=== PATIENT | female | born 1945 | race Caucasian/White ===

== ENCOUNTER → 2017-02-19 | Outpatient (CLI) | payer MEDICARE ==
[~2017-02-19] MED LIST: ALLEGRA ALLERG180 MG PO; AMITRIPTYLINE H25 MG PO; BENTYL10 M1 PO; GLUCOPHAGE500 M1 PO; IBUPROFEN200 M1 PO; ONE DAILY COMPL1 TA1 PO; PROBIOTIC1 EAC1 PO; PROTONIX PO; VITAMIN C1000 M2 PO
--- NOTE | ~2017-02-19 | CT2 ---
[facility] A Service of [facility] RADIOLOGY TEXT RESULTS PATIENT: KENNY WILLIS LOCATION: [facility] : 47 UNIT #: [id number] AGE: [address]: Maycol Pennington MD SEX: F ORDER DR: [id number] [facility]. [place], [place] [address] [id number] O MR#: [id number] Acc #: [id number] NAME: KENNY WILLIS : 1945 SEX: F STUDY DATE/TIME: 02/19/2017 9:21 UNIT: [facility] ROOM: STUDY DESCRIPTION: CT Abd and Pelv W Cont Attending Physician: Maycol Pennington M.D. Referring Physician: Maycol Pennington M.D. Ordering Physician: Maycol Pennington M.D. Primary Care Physician: Marilyn Hensley M.D. MEDICAL IMAGING REPORT This report is preliminary unless electronic signature is present EXAM CT abdomen and pelvis with contrast. INDICATIONS Restaging lung and rectal cancer. Observation for metastatic disease. PROCEDURE Contrast-enhanced CT of the abdomen and pelvis. This CT exam was performed with one or more of the following radiation dose reduction techniques: automatic exposure control, adjustment of mA and/or kV according to patient size, and iterative reconstruction. COMPARISON 11/05/2016. FINDINGS Refer to the separately dictated chest CT for thoracic findings. Abdomen with contrast: Liver, spleen, kidneys, adrenal glands, pancreas, gallbladder unremarkable. Bowel loops are nondilated. Appendix is normal. No pathologically enlarged abdominal nodes. Pelvis with contrast: No pelvic adenopathy. Previous hysterectomy. Previously demonstrated rectal thickening is not clearly seen on this study. No appreciable rectal mass. No aggressive appearing bone lesion. IMPRESSION 1. No appreciable rectal mass on this study. 2. No evidence for abdominal or pelvic metastatic disease. 3. Refer to separately dictated chest CT for thoracic findings. Dictated by... [facility] A Service [facility] RADIOLOGY TEXT RESULTS PATIENT: KENNY WILLIS LOCATION: [facility] : 46 UNIT #: [id number] AGE: [address]: Maycol Pennington MD SEX: F ORDER DR: Ricardo Morales M.D. THIS IS AN ELECTRONICALLY VERIFIED REPORT Ricardo Morales M.D. at 02/21/2017 7:14 AM EED/santiago TD: 02/19/2017 15:27 JOB #: [id number] MEDICAL IMAGING REPORT Page 1 of 1 COPY
--- NOTE | ~2017-02-19 | CT55 ---
[facility] A Service of [facility] RADIOLOGY TEXT RESULTS PATIENT: KENNY WILLIS LOCATION: [facility] : 46 UNIT #: [id number] AGE: [address]: Maycol Pennington MD SEX: F ORDER DR: [id number] [place], [place] [address] [id number] O MR#: [id number] Acc #: [id number] NAME: KENNY WILLIS : 1945 SEX: F STUDY DATE/TIME: 02/19/2017 9:21 UNIT: [facility] ROOM: STUDY DESCRIPTION: CT Chest W Con Attending Physician: Maycol Pennington M.D. Referring Physician: Maycol Pennington M.D. Ordering Physician: Maycol Pennington M.D. Primary Care Physician: Marilyn Hensley M.D. MEDICAL IMAGING REPORT This report is preliminary unless electronic signature is present EXAM CT chest with contrast INDICATION Restaging lung and rectal cancer. Observation for metastatic disease. PROCEDURE Contrast-enhanced CT of the chest. 100 mL of Isovue-370. COMPARISON PET/CT from 11/15/2016. TECHNIQUE This CT examination was performed with one or more of the following radiation dose reduction techniques: automatic exposure control, adjustment of mA and/or kV according to patient size, and iterative reconstruction. FINDINGS 1.5 cm nodule left lower lobe. It previously measured 2.2 cm. No new pulmonary nodule. No adenopathy. No aggressive appearing bone lesion. IMPRESSION 1. Interval decrease in size of the left lower lobe nodule now 1.5 cm previously 2.2 cm. 2. No evidence for new metastatic disease to the chest. Dictated by... Ricardo Morales M.D. THIS IS AN ELECTRONICALLY VERIFIED REPORT Ricardo Morales M.D. at 02/21/2017 7:14 AM [facility] A Service of [facility] RADIOLOGY TEXT RESULTS PATIENT: KENNY WILLIS LOCATION: [facility] : 46 UNIT #: [id number] AGE: [address]: Maycol Pennington MD SEX: F ORDER DR: Tanner TD: 02/19/2017 15:25 JOB #: [id number] MEDICAL IMAGING REPORT Page 1 of 1 COPY
[2017-02-19 08:45] LABS: POC - CREATININE 0.78 mg/dL (0.44-1.03); POC - GFR >60.0 mL/min (>60)
== END | disposition home or self-care (01) ==
LOC: CCAT 07:47
PROVIDERS: Internal Medicine Hematology & Oncology
DX: C20 Malignant neoplasm of rectum (principal); C78.02 Secondary malignant neoplasm of left lung; E11.8 Type 2 diabetes mellitus with unspecified complications; R91.1 Solitary pulmonary nodule
CPT/HCPCS: 71260; 74177; 82565; J1642; Q9967

== ENCOUNTER → 2017-06-23 | Outpatient (CLI) | payer MEDICARE ==
--- NOTE | ~2017-06-23 | CT55 ---
[facility] A Service [facility] RADIOLOGY TEXT RESULTS PATIENT: KENNY WILLIS LOCATION: [facility] : 46 UNIT #: [id number] AGE: [address]: Maycol Pennington MD SEX: F ORDER DR: [id number] [facility] [address] [place], [place] [address] [id number] O MR#: [id number] Acc #: [id number] NAME: KENNY WILLIS : 1945 SEX: F STUDY DATE/TIME: 06/23/2017 7:57 UNIT: [facility] ROOM: STUDY DESCRIPTION: CT Chest W Con Attending Physician: Maycol Pennington M.D. Referring Physician: Maycol Pennington M.D. Ordering Physician: Maycol Pennington M.D. Primary Care Physician: Marilyn Hensley M.D. MEDICAL IMAGING REPORT This report is preliminary unless electronic signature is present EXAM CT chest with contrast INDICATIONS Follow up pulmonary nodule. PROCEDURE Contrast-enhanced CT chest. This CT exam was performed with one or more of the following radiation dose reduction techniques: automatic exposure control, adjustment of mA and/or kV according to patient size, and iterative reconstruction. COMPARISON STUDIES 02/19/2017 FINDINGS The left lower lobe nodule is obscured by a new opacity in the left lower lobe. What is suspected to represent the nodule measures approximately 11 mm previously 1.5 cm. Minimal new opacity in the lingula. No new suspicious nodules. No pleural fluid or pneumothorax. No adenopathy. No acute findings in the included upper abdomen. No aggressive appearing bone lesion. IMPRESSION 1. Previously demonstrated nodule left lower lobe is now obscured by new opacity in the left lower lobe and lingula that may represent infiltrate or atelectasis. Correlate with patient's any current symptoms. 2. Structure which may represent the previously demonstrated nodule is slightly smaller than on the previous study. Recommend attention to this nodule on followup after clearing of the new left lung base opacity. [facility] A Service [facility] RADIOLOGY TEXT RESULTS PATIENT: KENNY WILLIS LOCATION: [facility] : 46 UNIT #: [id number] AGE: [address]: Maycol Pennington MD SEX: F ORDER DR: 3. No new suspicious nodules. Dictated by... Ricardo Morales M.D. THIS IS AN ELECTRONICALLY VERIFIED REPORT Ricardo Morales M.D. at 06/24/2017 8:27 AM ETTA/buddy TD: 06/23/2017 15:26 JOB #: [id number] MEDICAL IMAGING REPORT Page 1 of 1 COPY
[2017-06-23 08:40] LABS: POC - CREATININE 0.91 mg/dL (0.44-1.03); POC - GFR >60.0 mL/min (>60)
== END | disposition home or self-care (01) ==
LOC: CCAT 06:58
PROVIDERS: Internal Medicine Hematology & Oncology
DX: C78.02 Secondary malignant neoplasm of left lung (principal); C20 Malignant neoplasm of rectum; R91.1 Solitary pulmonary nodule; E11.8 Type 2 diabetes mellitus with unspecified complications
CPT/HCPCS: 71260; 82565; Q9967